=== PATIENT | male | born 1995 | race Two or more races ===

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

== ENCOUNTER → 2017-01-30 | Outpatient (CLI) | payer OTHER ==
--- NOTE | 2017-01-30 13:22 | REP ---
Clinical: Trauma. Technique: AP, lateral, bilateral oblique views of the left hand. Findings: There is a nondisplaced transverse fracture involving the proximal aspect of the third metacarpal shaft. Remainder examination appears normal. Impression: Transverse nondisplaced fracture proximal aspect of the third metacarpal shaft. Signed by Song Olmedo MD 01/30/2017 01:14 P
== END ==
LOC: M LRY 12:49
PROVIDERS: ATTEND Physician Assistant
DX: S62.352A Nondisplaced fracture of shaft of third metacarpal bone, right hand, initial encounter for closed fracture (principal); X58.XXXA Exposure to other specified factors, initial encounter; Y92.9 Unspecified place or not applicable; Y93.9 Activity, unspecified; Y99.9 Unspecified external cause status

== ENCOUNTER → 2017-05-09 | Outpatient (CLI) | payer OTHER ==
--- NOTE | 2017-05-09 14:35 | REP ---
Left small finger series: Four views. History: Crush injury of the small finger distal phalanx with ecchymosis of the nail. Findings: Four views of the left small finger show soft tissue swelling dorsally over the distal phalanx. No fracture is seen. No opaque foreign body noted. No soft tissue gas seen. Impression: No acute bony abnormality. Soft tissue swelling distal phalanx. Signed by Jovi Farnsworth MD 05/09/2017 03:05 P
== END ==
LOC: M LRY 13:45
PROVIDERS: ATTEND Nurse Practitioner Family
DX: S67.197A Crushing injury of left little finger, initial encounter (principal); X58.XXXA Exposure to other specified factors, initial encounter; Y92.89 Other specified places as the place of occurrence of the external cause; Y93.89 Activity, other specified; Y99.8 Other external cause status

== ENCOUNTER 2019-04-28 01:13 | Emergency (ER) | payer BC, OTHER ==
[~2019-04-28] VITALS: Ht 172.7 cm; Wt 88.6 kg
[2019-04-28] MEDS ORDERED: ROBA750T4 PO (02:52)
[2019-04-28] MEDS ORDERED: METHOCARBAMOL 1,000 MG/10 ML VIAL (J2800) IM ONE (03:00)
[2019-04-28 04:01] VITALS: BP 155/72
== END 2019-04-28 04:02 | disposition home or self-care (01) ==
LOC: M ED 01:13
DX: S39.012A Strain of muscle, fascia and tendon of lower back, initial encounter (principal); X58.XXXA Exposure to other specified factors, initial encounter; Y92.89 Other specified places as the place of occurrence of the external cause
CPT/HCPCS: 96372; 99283; J2800

== ENCOUNTER 2023-07-24 00:45 | Emergency (ER) | payer BC, SELFPAY ==
[~2023-07-24] VITALS: Ht 172.7 cm; Wt 103.7 kg
[~2023-07-24 00:45] MED LIST changes: +ROBA750T4 PO
[2023-07-24 03:14] VITALS: TEMP 97.8
[2023-07-24] MEDS ORDERED: diazePAM 10MG/2ML SYRINGE IV ONE (06:25)
[2023-07-24] MEDS ORDERED: KETOROLAC 30 MG/ML 1ML VIAL IV ONE (06:25)
[2023-07-24] MEDS ORDERED: NAPROXEN 250 MG TAB PO ONE (06:35)
[2023-07-24] MEDS ORDERED: METH-1165 PO (06:37)
[2023-07-24] MEDS ORDERED: NAPR-837 PO (06:37)
[2023-07-24] MEDS ORDERED: ASPE4PAD TOP (06:37)
[2023-07-24 06:41] VITALS: BP 157/97; O2SAT 97
[2023-07-24] MEDS: diazePAM 5MG TABLET PO ONE (06:46)
[2023-07-24] MEDS: LIDOCAINE 5% (LIDODERM) PATCH TD ONE (06:47)
== END 2023-07-24 07:01 | disposition home or self-care (01) ==
LOC: M ED 00:45
DX: M54.50 Low back pain, unspecified (principal); Z79.899 Other long term (current) drug therapy